=== PATIENT | male | born 1990 | race Two or more races ===

== ENCOUNTER 2025-05-29 09:51 | Inpatient (IN) | payer MEDICAID, OTHER ==
[~2025-05-29] VITALS: Ht 170.2 cm; Wt 85.3 kg
--- NOTE | 2025-05-29 10:49 | ED.PDOC ---
Musculoskeletal HPI Comments 35-year-old male presents to the ED for chief complaint of right elbow pain associated with swelling and redness that started 3 days ago. Patient reports that he got bit by a spider, has a puncture wound to the elbow region where the redness is localized. Patient denies any fever, chills, or drainage from wound site. He denies any medical history. Chief Complaint: Upper Extremity Time Seen by MD: 10:26 Reviewed Notes: Nurses Notes, Medications, Allergies Allergies: Coded Allergies: NO KNOWN ALLERGIES (Unverified , 05/29/25) Information Source: Patient Mode of Arrival: Ambulatory Location: Right Extremity Location: Arm, Elbow Severity: Moderate Able to Move Extremity: Yes Bear Weight: Fully Pain: Moderate Mechanism: None Circumstances: Other Associated signs and symptoms: Swelling, Elbow pain Past Medical History PAST MEDICAL HISTORY: Denies Surgical History: Denies all surgeries Social History Smoker: Cigarettes Alcohol: Denies ETOH Use Drugs: Marijuana Lives In: Home Constitutional: denies: chills, diaphoresis, fatigue, fever, malaise, sweats, weakness, others EENTM: denies: blurred vision, double vision, ear bleeding, ear discharge, ear drainage, ear pain, ear ringing, eye pain, eye redness, hearing loss, mouth pain, mouth swelling, nasal discharge, nose bleeding, nose congestion, nose pain, photophobia, tearing, throat pain, throat swelling, voice changes, others Respiratory: denies: cough, hemoptysis, orthopnea, SOB at rest, shortness of breath, SOB with excertion, stridor, wheezing, others Cardiovascular: denies: chest pain, dizzy spells, diaphoresis, Dyspnea on exertion, edema, irregular heart beat, left arm pain, lightheadedness, palpitations, PND, syncope, others Gastrointestinal: denies: abdomen distended, abdominal pain, blood streaked bowels, constipated, diarrhea, dysphagia, difficulty swallowing, hematemesis, melena, nausea, poor appetite, poor fluid intake, rectal bleeding, rectal pain, vomiting, others Genitourinary: denies: burning, dysuria, flank pain, frequency, hematuria, incontinence, penile discharge, penile sore, pain, testicle pain, testicle swelling, urgency, others Neurological: denies: dizziness, fainting, headache, left sided numbness, left sided weakness, numbness, paresthesia, pre-existing deficit, right sided numbness, right sided weakness, seizure, speech problems, tingling, tremors, weakness, others Musculoskeletal: denies: back pain, gout, joint pain, joint swelling, muscle pain, muscle stiffness, neck pain, others Integumetry: reports: others (right swelling and redness elbow and arm ); denies: bruises, change in color, change in hair/nails, dryness, laceration, lesions, lumps, rash, wounds Allergic/Immunocompromised: denies: Difficulty Healing, Frequent Infections, Hives, Itching, others Hematologic/Lymphatic: denies: anemia, blood clots, easy bleeding, easy bruising, swollen glands, others Endocrine: denies: excessive hunger, excessive sweating, excessive thirst, excessive urination, flushing, intolerance to cold, intolerance to heat, unexplained weight gain, unexplained weight loss, others Psychiatric: denies: anxiety, bipolar disorder, depression, hopeless, panic disorder, schizophrenia, sleepless, suicidal, others All Other Systems: Reviewed and Negative Physical Exam General Appearance: Moderate Distress HEENT: Normal ENT Inspection, Pharynx Normal, TMs Normal Neck: Full Range of Motion, Non-Tender, Normal, Normal Inspection Respiratory: Chest Non-Tender, Lungs Clear, No Accessory Muscle Use, No Respiratory Distress, Normal Breath Sounds Cardiovascular: No Edema, No JVD, No Murmur, No Gallop, Normal Peripheral Pulses, Regular Rate/Rhythm Breast Exam: Deferred Gastrointestinal: No Organomegaly, Non Tender, No Pulsatile Mass, Normal Bowel Sounds, Soft Genitalia: Deferred Pelvic: Deferred Rectal: Deferred Extremities: No calf tenderness, Normal capillary refill, Normal inspection, Normal range of motion, Non-tender, No pedal edema Musculoskeletal : Apperance: Normal Neurologic: Alert, stripping shovel oiler II-XII nml as Tested, No Motor Deficits, Normal Affect, Normal Mood, No Sensory Deficits Cerebellar Function: NOT DONE Reflexes: NOT DONE Skin: Wounds (Right elbow redness) Peripheral Pulses: 3+ Radial (R), 3+ Radial (L) Lymphatic: No Adenopathy Was a procedure done? Was a procedure done?: No Differential Diagnosis EXT Differential Diagnosis: Cellulitis, Deep Vein Thrombosis, Gout, Strain X-Ray, Labs, Meds, VS Vital Signs Date Time Temp Pulse Resp B/P (MAP) Pulse Ox O2 Delivery O2 Flow Rate FiO2 05/29/25 10:41 99.7 120 19 127/86 (100) 96 99.7 05/29/25 09:55 98.1 118 18 127/91 99 98.1 Patient alert. Complaining of right elbow swelling. Possible spider bite. Vitals stable. Saturation pristine on room air. He is tachycardic. Establish intravenous access. Was given fluids pain Was given Rocephin. Was given clindamycin. Continue monitoring. Time of 1ST Reevaluation: 10:49 Reevaluation 1ST: Unchanged Patient Education/Counseling: Diagnosis, Treatment, Prognosis Family Education/Counseling: No Family Present Departure 1 Departure Time of Disposition: 12:44 Impression: Primary Impression: Cellulitis Qualified Codes: L03.113 - Cellulitis of right upper limb Disposition: ADMITTED INPATIENT Admit to: Med Surg Condition: Guarded Critical Care Note Critical Care Time?: No Stability Stability form required: No I personally scribed for ELVIN JIMENEZ MD ([email or web address]) on 05/29/25 at 10:49. Electronically submitted by Katarina Reyez ([facility]). ELVIN JIMENEZ MD May 29, 2025 10:49
[2025-05-29 13:38] LABS: Hematocrit 51.8 % (41.0-53.0); Hemoglobin 17.5 g/dL (13.5-17.5); Mean Corpuscular Hemoglobin 30.1 pg (28.0-32.0); Mean Corpuscular Volume 88.8 fL (80.0-100.0); Nucleated Red Blood Cells % 0.1 %
[2025-05-29 13:48] LABS: Potassium 3.6 mmol/L (3.5-5.1)
[2025-05-29 13:49] LABS: Anion Gap 9 (5-15); Carbon Dioxide 25 mmol/L (20-31)
[2025-05-29 13:50] LABS: Calcium 9.6 mg/dL (8.7-10.4)
[2025-05-29 13:51] LABS: Chloride 97 mmol/L (98-107); Sodium 131 mmol/L (136-145)
[2025-05-29 13:54] LABS: BUN/Creatinine Ratio 8.7 (10.0-20.0)
[2025-05-29 13:55] LABS: Blood Urea Nitrogen 9 mg/dL (9-23); Glucose 109 mg/dL (74-106)
[2025-05-29] MEDS: SODIUM CHLORIDE 0.9% 1,000 ML IV ONE ×2 (14:06→20:10)
[2025-05-29] MEDS: CLINDAMYCIN 600MG IV 50 ML IV ONE ×2 (14:07→14:14)
--- NOTE | 2025-05-29 14:29 | DVHHPRES ---
History of Present Illness Resident Creating Document: SUZETTE FELTON History of Present Illness Alexander Moreland is a 35-year-old male patient who presents to the ED with chief complaint of right elbow swelling and redness after presumable spider bite which occurred three days ago. Associated he also presented fever the past 24 hours before his admission, prompting his visit to the ED. Denies any other associated symptom. Past medical history: Denies Surgical history: Left radial artery repair after trauma Family history noncontributory Social history: Lives in [place] with family (next of kin of partner). Current tobacco abuse (approximately one pack-year history of smoking) alcohol abuse (a 12 pack of beer every day for one year). Denies current marijuana and other drug abuse. Allergies: Denies Home medication: Denies Patient seen and examined at bedside. Currently has no new complaints. Patient will be admitted for further evaluation and management. Past Medical History Per HPI Past Surgical History Per HPI Family History Per HPI Past Social History Per HPI Review of Systems Review of Systems Per HPI Allergies: Coded Allergies: NO KNOWN ALLERGIES (Unverified , 05/29/25) Exam Vital Signs Vital Signs Date Time Temp Pulse Resp B/P (MAP) Pulse Ox O2 Delivery O2 Flow Rate FiO2 05/29/25 10:41 99.7 120 19 127/86 (100) 96 99.7 Exam Patient lying in bed, in no acute distress General: Lucid, afebrile, mucosae are moist Cardiovascular: Normal S1 and S2. No murmurs, gallops or rubs Respiratory: Normal ventilation mechanics. Clear lung sounds on auscultation Abdomen: Soft, nontender, no organomegaly, normal bowel sounds MSK/skin: Mobilizes 4 limbs. Skin is dry and warm. Warmth and erythema on right elbow associated with pustular lesion Neurological: Oriented in 3 spheres. No motor no sensitive deficits. Pupils are isocoric and reactive Labs/Xrays Labs Test 05/29/25 13:30 Range/Units White Blood Count 14.5 H 4.4-10.8 10^3/uL Red Blood Count 5.83 4.5-5.90 10^6/uL Hemoglobin 17.5 13.5-17.5 g/dL Hematocrit 51.8 41.0-53.0 % Mean Corpuscular Volume 88.8 80.0-100.0 fL Mean Corpuscular Hemoglobin 30.1 28.0-32.0 pg Mean Corpuscular Hemoglobin Concent 33.9 32.0-36.0 g/dL Red Cell Distribution Width 14.0 11.8-14.3 % Platelet Count 232 140-450 10^3/uL Mean Platelet Volume 6.9 6.9-10.8 fL Neutrophils (%) (Auto) 90.3 H 37.0-80.0 % Lymphocytes (%) (Auto) 4.4 L 10.0-50.0 % Monocytes (%) (Auto) 3.9 0.0-12.0 % Eosinophils (%) (Auto) 1.3 0.0-7.0 % Basophils (%) (Auto) 0.1 0.0-2.0 % Neutrophils # (Auto) 13.1 H 1.6-8.6 10 ^3/uL Lymphocytes # (Auto) 0.6 0.4-5.4 10 ^3/uL Monocytes # (Auto) 0.6 0-1.3 10 ^3/uL Eosinophils # (Auto) 0.2 0-0.8 10 ^3/uL Basophils # (Auto) 0 0-0.2 10 ^3/uL Nucleated Red Blood Cells 0.1 % Sodium Level 131 L 136-145 mmol/L Potassium Level 3.6 3.5-5.1 mmol/L Chloride Level 97 L 98-107 mmol/L Carbon Dioxide Level 25 20-31 mmol/L Anion Gap 9 5-15 Blood Urea Nitrogen 9 9-23 mg/dL Creatinine 1.04 0.700-1.30 mg/dL Glomerular Filtration Rate Calc 95 >90 mL/min BUN/Creatinine Ratio 8.7 L 10.0-20.0 Serum Glucose 109 H 74-106 mg/dL Calcium Level 9.6 8.7-10.4 mg/dL SEPSIS Sepsis Screen Date sepsis recognized/suspect: May 29, 2025 Time Sepsis recognized/suspect: 955 Recent Procedure: No On Antibiotic Therapy: No Respiratory Rate >20: No Heart Rate >90: No Temp<36 C (96.8 F) or >38.3 C: No SBP <90 or MAP <65 mmHG: No New Acute Mental Status Change: No Is the patient on CPAP, BIPAP,: No Physician Orders R Elbow 3 View Xray (05/29/25 14:18) Admit (05/29/25 14:18) Code Status (05/29/25 14:18) Acetaminophen Tablet (Tylenol Tablet) (05/29/25 14:30) Ondansetron Hcl (Zofran) (05/29/25 14:30) Complete Blood Count (05/30/25 04:00) Comprehensive Metabolic Panel (05/30/25 04:00) Cardiac Diet-2gna,Lofat,Lochol (05/29/25 Dinner) Morphine Sulfate Injection (05/29/25 14:30) Enoxaparin Sodium (Lovenox) (05/30/25 10:00) Oxygen By Nasal Cannula (05/29/25 14:18) Stat Ekg For Chest Pain (05/29/25 14:18) Notify Of Changes From Base (05/29/25 14:18) Psychiatric Aides Teacher For 24 Hours (05/29/25 14:18) Emergency Dysrhythmia Protocol (05/29/25 14:18) Rhythm Strips Once Every Shift (05/29/25 14:18) Vitamin D, 25-Hydroxy (05/29/25 14:18) Vitamin B12 (05/29/25 14:18) Urinalysis (05/29/25 14:18) Thyroid Stimulating Hormone (05/29/25 14:18) PTPTT (05/29/25 14:18) Phosphorus (05/29/25 14:18) Magnesium (05/29/25 14:18) Lipid Panel (05/29/25 14:18) Lactic Acid W/ Reflex Order (05/29/25 14:18) Hemoglobin A1c (05/29/25 14:18) Drug Screen (05/29/25 14:18) Blood Culture (05/29/25 14:18) Urine Bacterial Culture (05/29/25 14:18) Respiratory Culture W/ Gs (05/29/25 14:18) Mrsa Screen (05/29/25 14:18) Chest Xray 1 View (05/29/25 14:18) Covid19 Antigen Gail (05/29/25 ) Rapid Influenza A&B (05/29/25 14:18) * Wound Consult (05/29/25 ) Wound Culture W/ Gs (05/29/25 14:18) Hepatic Panel (05/29/25 14:27) Vancomycin (05/29/25 14:30) Zosyn Extended Infusion (05/29/25 22:00) NS (05/29/25 14:30) Vital Signs Date Time Temp Pulse Resp B/P (MAP) Pulse Ox O2 Delivery O2 Flow Rate FiO2 05/29/25 10:41 99.7 120 19 127/86 (100) 96 99.7 05/29/25 09:55 98.1 118 18 127/91 99 98.1 Laboratory Tests Test 05/29/25 13:30 White Blood Count 14.5 10^3/uL (4.4-10.8) H Medications Medications Dose Ordered Sig/Farhan Route Start Time Stop Time Status Last Admin Dose Admin Ceftriaxone Sodium 50 ml @ 100 mls/hr ONCE ONCE IV 05/29/25 12:45 05/29/25 13:14 DC 05/29/25 14:07 100 MLS/HR Clindamycin Phosphate 50 ml @ 50 mls/hr ONCE ONCE IV 05/29/25 12:45 05/29/25 13:44 DC 05/29/25 14:07 50 MLS/HR Sodium Chloride 1,000 ml @ 1,000 mls/hr Q1H ONCE IV 05/29/25 12:45 05/29/25 13:44 DC 05/29/25 14:06 1,000 MLS/HR Assessment/Plan Assessment/Plan ASSESSMENT Sepsis secondary to cellulitis right elbow Rule out abscess of right elbow Hyperlacticacidemia Transaminitis Mild hyponatremia Simple hyperglycemia Hypertriglyceridemia Polysubstance abuse (tobacco, alcohol and methamphetamine) Overweight PLAN Patient admitted to telemetry Required IV fluids. Currently under empiric IV antibiotic (vancomycin and Zosyn) Ordered x-ray which showed no abnormality Due to persistent tachycardia and fever, we will order right upper extremity CT with IV contrast to rule out abscess Consulted surgical scrub technologist for eventual incision and drainage Awaiting pancultures UDS is positive for methamphetamine (per patient he was not consuming). Counseled strongly on cessation of polysubstance abuse. Gave her advice on healthy lifestyle habits. Goals of care discussed with patient for over 18 minutes: Full code status Discussed plan with Dr. Diamond, patient and nurses: Currently on telemetry status. On empiric IV antibiotic, IV fluids, awaiting complementary workup to rule out right elbow abscess. Patient has poor prognosis Plan discussed with: Patient, Other (Nurses) My Orders Orders - SUZETTE FELTON RESIDENT Procedure Category Date Status Time R Elbow 3 View Xray XY 05/29/25 Logged 14:18 Admit ADMIT 05/29/25 Transmitted 14:18 Code Status CODE 05/29/25 Transmitted 14:18 Acetaminophen Tablet PHA 05/29/25 Logged (Tylenol Tablet) 14:30 Ondansetron Hcl PHA 05/29/25 Logged (Zofran) 14:30 Complete Blood Count LAB 05/30/25 Verified 04:00 Comprehensive LAB 05/30/25 Verified Metabolic Panel 04:00 Cardiac DIET 05/29/25 Transmitted Diet-2gna,Lofat,Lochol Dinner Morphine Sulfate PHA 05/29/25 Logged Injection 14:30 Enoxaparin Sodium PHA 05/30/25 Logged (Lovenox) 10:00 Oxygen By Nasal RT 05/29/25 Transmitted Cannula 14:18 Stat Ekg For Chest BANNER 05/29/25 In Process Pain 14:18 Notify Md Of Changes BANNER 05/29/25 In Process From Base 14:18 Psychiatric Aides Teacher For BANNER 05/29/25 In Process 24 Hours 14:18 Emergency Dysrhythmia BANNER 05/29/25 In Process Protocol 14:18 Rhythm Strips Once BANNER 05/29/25 In Process Every Shift 14:18 Vitamin D, 25-Hydroxy LAB 05/29/25 Logged 14:18 Vitamin B12 LAB 05/29/25 Logged 14:18 Urinalysis LAB 05/29/25 Logged 14:18 Thyroid Stimulating LAB 05/29/25 Logged Hormone 14:18 PTPTT LAB 05/29/25 Logged 14:18 Phosphorus LAB 05/29/25 Logged 14:18 Magnesium LAB 05/29/25 Logged 14:18 Lipid Panel LAB 05/29/25 Logged 14:18 Lactic Acid W/ Reflex LAB 05/29/25 Logged Order 14:18 Hemoglobin A1c LAB 05/29/25 Logged 14:18 Drug Screen LAB 05/29/25 Logged 14:18 Blood Culture SRINATH 05/29/25 Logged 14:18 Urine Bacterial SRINATH 05/29/25 Logged Culture 14:18 Respiratory Culture SRINATH 05/29/25 Logged W/ Gs 14:18 Mrsa Screen SRINATH 05/29/25 Logged 14:18 Chest Xray 1 View XY 05/29/25 Logged 14:18 Covid19 Antigen Gail LAB 05/29/25 Logged Rapid Influenza A&B LAB 05/29/25 Logged 14:18 * Wound Consult CONS 05/29/25 Transmitted Wound Culture W/ Gs SRINATH 05/29/25 Logged 14:18 Hepatic Panel LAB 05/29/25 Verified 14:27 Vancomycin PHA 05/29/25 Verified 14:30 Zosyn Extended PHA 05/29/25 Verified Infusion 22:00 NS PHA 05/29/25 Verified 14:30 Visit Coding STANDARD RES Billing Provider: BEVERLEY DIAMOND MD Date of Service if different f: May 29, 2025 Common Visit Codes: [id number] INP/OBS CARE (HIGH) Secondary Visit Codes: [id number] CARE PLAN 30 MINUTES SUZETTE FELTON RESIDENT May 29, 2025 14:29
[2025-05-29] MEDS ORDERED: VANCOMYCIN PER PHARMACY 0 MG IV SCH (14:30)
[2025-05-29 14:54] LABS: INR 1.12 (0.9-1.15); Partial Thromboplastin Time 31.5 SEC (24.5-34.5); Prothrombin Time 11.7 sec (9.3-11.8)
[2025-05-29] MEDS: VANCOMYCIN 1GM/250ML KIT 250 ML IV SCH (15:09)
[2025-05-29 15:10] LABS: Magnesium 2.2 mg/dL (1.6-2.6)
[2025-05-29 15:12] LABS: Cholesterol 134.0 mg/dL (< 200); HDL Cholesterol 59.0 mg/dL (40-59)
[2025-05-29 15:26] LABS: Albumin 4.8 g/dL (3.2-4.8); Alkaline Phosphatase 112.0 U/L (46-116); Total Protein 7.9 g/dL (5.7-8.2)
[2025-05-29 15:27] LABS: Bilirubin, Direct 0.3 mg/dL (<0.3); Bilirubin, Total 0.7 mg/dL (0.2-1.0)
[2025-05-29 15:28] LABS: Alanine Aminotransferase 50.0 U/L (7-40); Triglycerides 161.0 mg/dL (< 150)
--- NOTE | 2025-05-29 16:09 | DVH ---
CHEST RADIOGRAPH INDICATION: Sepsis TECHNIQUE: Single frontal view of the chest was obtained COMPARISON: None FINDINGS: Lines and Tubes: None Lungs: No focal consolidation. Pleura: No effusion. No pneumothorax. Cardiomediastinal contours: Unremarkable Bones: No acute osseous abnormality. IMPRESSION: No acute cardiopulmonary disease.
[2025-05-29 16:11] LABS: Lactic Acid w/Reflex 2.2 mmol/L (0.4-2.0)
--- NOTE | 2025-05-29 16:11 | DVH ---
CLINICAL INDICATION: Cellulitis TECHNIQUE: 3 radiographic views of the elbow were obtained. COMPARISON: None FINDINGS/IMPRESSION: There is no evidence of acute fracture or dislocation. The visualized joint space is well maintained. The alignment is anatomical. There is no radiopaque foreign body.
[2025-05-29] MEDS: VANCOMYCIN 1GM/250ML KIT 250 ML IV ONE ×2 (16:53→16:57)
[2025-05-29] MEDS: ONDANSETRON HCL 4 MG/2 ML VIAL IV PRN (17:07)
[2025-05-29] MEDS: MORPHINE SULFATE 4 MG/ML SYR/VIAL IV PRN (17:08)
[2025-05-29] MEDS: MORPHINE SULFATE 4 MG/ML SYR/VIAL ONE (17:08)
[2025-05-29] MEDS: ONDANSETRON HCL 4 MG/2 ML VIAL ONE (17:08)
[2025-05-29] MEDS: ACETAMINOPHEN 325 MG TAB PO ONE ×2 (17:23→19:06)
[2025-05-29 17:31] LABS: Urine Protein, UAD 1+ (Negative)
[2025-05-29 17:47] LABS: Amphetamine Screen, Urine Pos (NEGATIVE); Barbiturate Scree,Urine Neg (NEGATIVE); Benzodiazephine Screen, Urine Neg (NEGATIVE); Cannabinoid Screen, Urine Neg (NEGATIVE); Cocaine Screen, Urine Neg (NEGATIVE); Opiate Scree,Urine Neg (NEGATIVE); Phencyclidine Screen, Urine Neg (NEGATIVE)
[2025-05-29 17:57] LABS: COVID19 ANTIGEN SOFIA FIA NEGATIVE (NEGATIVE)
[2025-05-29 18:54] VITALS: PULSE 118; RESP 18; O2SAT 98
[2025-05-29] MEDS: SODIUM CHLORIDE 0.9% 1,000 ML IV SCH (19:08)
[2025-05-29 21:22] VITALS: BP 125/86; PULSE 123; RESP 20; TEMP 100.1; O2SAT 97
--- NOTE | 2025-05-29 22:56 | DVH ---
ULTRASOUND OF RIGHT UPPER EXTREMITY SOFT TISSUE REASON FOR EXAMINATION: Evaluate abscess on right elbow. Spider bite. COMPARISON: XY R ELBOW 3 VIEW XRAY on DOS: 05/29/25 TECHNIQUE: Using real-time freeze-frame technique with a high-frequency transducer, multiple longitudinal and transverse sections were obtained in the area of concern at the right elbow. Simultaneous color flow and spectral Doppler imaging was performed with appropriate. FINDINGS: There is severe edema of the subcutaneous soft tissues in the area of concern at the right elbow. There is an approximately 0.7 x 0.3 cm focal elevation of the skin in the area of concern. There is a 1.2 x 0.6 x 0.7 cm lobulated, anechoic fluid collection approximately 0.7 cm beneath the skin within the edematous subcutaneous tissue. IMPRESSION: Severe edema. Approximately 1.2 cm lobulated fluid collection within the subcutaneous tissue, possibly an early abscess.
[2025-05-29] MEDS: PIPERACILLIN-TAZOB 3.375GM 100 ML IV SCH (23:00)
[2025-05-29] MEDS: KETOROLAC TROMETH 30 MG/ML 1ML VIAL IV ONE (23:01)
[2025-05-30] VITALS (9 sets, daily range): BP systolic 106–126; BP diastolic 73–91; PULSE 100–118; RESP 16–18; TEMP 97.9–101.5; O2SAT 93–100
[2025-05-30] MEDS: ACETAMINOPHEN 325 MG TAB PO PRN (00:09)
[2025-05-30] MEDS: HYDROmorphone HCL 2 MG/ML VL/or syr IV PRN ×2 (05:07→21:58)
[2025-05-30 05:47] LABS: Hematocrit 44.3 % (41.0-53.0); Hemoglobin 15.0 g/dL (13.5-17.5); Mean Corpuscular Hemoglobin 30.0 pg (28.0-32.0); Mean Corpuscular Volume 88.8 fL (80.0-100.0); Nucleated Red Blood Cells % 0.0 %
[2025-05-30 05:55] LABS: Alkaline Phosphatase 106 U/L (46-116); Anion Gap 8 (5-15); BUN/Creatinine Ratio 9.2 (10.0-20.0); Carbon Dioxide 23 mmol/L (20-31); Chloride 103 mmol/L (98-107); Potassium 4.0 mmol/L (3.5-5.1); Total Protein 6.2 g/dL (5.7-8.2)
[2025-05-30 05:56] LABS: Albumin 3.7 g/dL (3.2-4.8); Bilirubin, Total 1.1 mg/dL (0.2-1.0)
[2025-05-30 06:05] LABS: Alanine Aminotransferase 51 U/L (7-40); Blood Urea Nitrogen 8 mg/dL (9-23); Calcium 8.2 mg/dL (8.7-10.4); Glucose 107 mg/dL (74-106); Sodium 134 mmol/L (136-145)
[2025-05-30] MEDS: ENOXAPARIN SOD 40 MG/0.4 ML SYRINGE SC SCH (09:42)
[2025-05-30] MEDS: VANCOMYCIN 750MG KIT 100 ML IV SCH ×2 (13:00→20:43)
--- NOTE | 2025-05-30 13:11 | DVHINCON2 ---
Consultation - Surgical Date Seen: May 30, 2025 Referring Physician Reason for Consultation Right elbow cellulitis and superficial abscess History of Present Illness History of Present Illness Mr. Moreland is a 35-year-old male who presented to the hospital with 3 days of right elbow pain and swelling. Patient has no idea what happened to the elbow he thinks is some sort of spider bite as he saw a little hole in the elbow and it was whitish when he 1st noticed it. States that the area has continued to swell up as the days passed and pain has increased. He states that it started draining pus out of the elbow at the site of the little hole yesterday. He has been febrile prior to admission. He does not know for sure if it was a insect bite or denies any trauma to the area. He also denies injecting anything to the area. Denies being recently sick or having sick contacts, chills, changes in urinary or stooling habits. Past Medical/Surgical History Past Medical/Surgical History PMH left forearm abscess due to trauma, left radial artery injury due to trauma PSH incision and drainage of left forearm abscess in left radial artery repair Family and Social History Family and Social History Family history noncontributory ETOH/drugs denies, although patient was meth positive on labs T Ob 1 pack per day for 1 year Allergies and medications Allergies: Coded Allergies: NO KNOWN ALLERGIES (Unverified , 05/29/25) Home Meds No Active Prescriptions or Reported Meds Review of systems Review of Systems: Deferred Examination Vital signs Vital Signs Date Time Temp Pulse Resp B/P (MAP) Pulse Ox O2 Delivery O2 Flow Rate FiO2 05/30/25 09:43 108 18 133/86 05/30/25 09:00 101.1 98 101.1 05/30/25 08:00 Room Air* 0 21 Medications Current Medications Medications (Trade) Dose Ordered Sig/Farhan Route PRN Reason Start Time Stop Time Status Last Admin Acetaminophen (Tylenol Tablet) 325 mg Q4HP PRN PO MILD PAIN (1-3 PAIN SCALE) 05/29/25 14:30 05/30/25 00:09 Ondansetron HCl (Zofran) 4 mg Q4HP PRN IV NAUSEA / VOMITING 05/29/25 14:30 05/29/25 17:07 Morphine Sulfate 2 mg Q4HPRN PRN IV SEVERE PAIN (7-10 PAIN SCALE) 05/29/25 14:45 05/29/25 22:46 DC 05/29/25 17:08 Enoxaparin Sodium (Lovenox) 40 mg DAILY SC 05/30/25 10:00 05/30/25 09:42 Vancomycin HCl 0 ml @ 0 mls/hr PER PHARMACY IV 05/29/25 14:30 Piperacillin Sod/ Tazobactam Sod 100 ml @ 25 mls/hr Q8HR IV 05/29/25 22:00 05/30/25 05:08 Sodium Chloride 1,000 ml @ 100 mls/hr Q10H IV 05/29/25 14:30 05/30/25 05:11 Vancomycin HCl 250 ml @ 250 mls/hr Q1H IV 05/29/25 14:45 05/29/25 16:44 DC 05/29/25 16:57 Hydromorphone HCl (Dilaudid Injection) 0.25 mg Q4HPRN PRN IV SEVERE PAIN (7-10 PAIN SCALE) 05/29/25 22:45 05/30/25 09:43 Vancomycin HCl 100 ml @ 100 mls/hr Q8H IV 05/30/25 13:00 Laboratory Labs Test 05/30/25 05:25 05/29/25 17:00 05/29/25 13:30 Range/Units White Blood Count 13.4 H 4.4-10.8 10^3/uL Red Blood Count 5.00 4.5-5.90 10^6/uL Hemoglobin 15.0 13.5-17.5 g/dL Hematocrit 44.3 # 41.0-53.0 % Mean Corpuscular Volume 88.8 80.0-100.0 fL Mean Corpuscular Hemoglobin 30.0 28.0-32.0 pg Mean Corpuscular Hemoglobin Concent 33.8 32.0-36.0 g/dL Red Cell Distribution Width 13.8 11.8-14.3 % Platelet Count 180 140-450 10^3/uL Mean Platelet Volume 6.9 6.9-10.8 fL Neutrophils (%) (Auto) 91.4 H 37.0-80.0 % Lymphocytes (%) (Auto) 4.2 L 10.0-50.0 % Monocytes (%) (Auto) 2.7 0.0-12.0 % Eosinophils (%) (Auto) 1.6 0.0-7.0 % Basophils (%) (Auto) 0.1 0.0-2.0 % Neutrophils # (Auto) 12.3 H 1.6-8.6 10 ^3/uL Lymphocytes # (Auto) 0.6 0.4-5.4 10 ^3/uL Monocytes # (Auto) 0.4 0-1.3 10 ^3/uL Eosinophils # (Auto) 0.2 0-0.8 10 ^3/uL Basophils # (Auto) 0 0-0.2 10 ^3/uL Nucleated Red Blood Cells 0.0 % Sodium Level 134 L 136-145 mmol/L Potassium Level 4.0 3.5-5.1 mmol/L Chloride Level 103 98-107 mmol/L Carbon Dioxide Level 23 20-31 mmol/L Anion Gap 8 5-15 Blood Urea Nitrogen 8 L 9-23 mg/dL Creatinine 0.87 0.700-1.30 mg/dL Glomerular Filtration Rate Calc 115 >90 mL/min BUN/Creatinine Ratio 9.2 L 10.0-20.0 Serum Glucose 107 H 74-106 mg/dL Lactic Acid Level 0.8 0.4-2.0 mmol/L Calcium Level 8.2 L 8.7-10.4 mg/dL Total Bilirubin 1.1 H 0.2-1.0 mg/dL Aspartate Amino Transferase (AST) 36 13-40 U/L Alanine Aminotransferase (ALT) 51 H 7-40 U/L Alkaline Phosphatase 106 46-116 U/L Total Protein 6.2 5.7-8.2 g/dL Albumin 3.7 3.2-4.8 g/dL Random Vancomycin Level 3.8 L 5-10 ug/mL Urine Color Yellow Yellow Urine Clarity Clear Clear Urine pH 5.5 5.0-9.0 Urine Specific [place] 1.035 1.001-1.035 Urine Protein 1+ H Negative Urine Ketones Trace Negative Urine Blood Negative Negative /uL Urine Nitrite Negative Negative Urine Bilirubin Negative Negative Urine Urobilinogen Normal Negative mg/dL Urine Leukocyte Esterase 1+ Negative /uL Urine RBC 5 0 - 3 /hpf Urine Microscopic WBC 16 H 0-3 /HPF Urine Squamous Epithelial Cells Few <5 /hpf Urine Bacteria None seen None Seen /hpf Urine Hyaline Casts Few 0 - 2 /lpf Urine Mucus Few None Seen Urine Glucose 1+ H Normal mg/dL Urine Opiates Screen Neg NEGATIVE Urine Fentanyl Screen Neg NEGATIVE Urine Barbiturates Screen Neg NEGATIVE Urine Phencyclidine Screen Neg NEGATIVE Urine Amphetamines Screen Pos NEGATIVE Urine Benzodiazepines Screen Neg NEGATIVE Urine Cocaine Screen Neg NEGATIVE Urine Cannabinoids Screen Neg NEGATIVE Influenza Type A Antigen Negative Negative Influenza Type B Antigen Negative Negative SARS-CoV-2 Antigen (Rapid) Negative NEGATIVE Prothrombin Time 11.7 9.3-11.8 sec Prothrombin Time INR 1.12 0.9-1.15 Activated Partial Thromboplast Time 31.5 24.5-34.5 SEC Hemoglobin A1c 5.4 <5.7 % A1C Phosphorus Level 2.9 2.4-5.1 mg/dL Magnesium Level 2.2 1.6-2.6 mg/dL Direct Bilirubin 0.3 <0.3 mg/dL Triglycerides Level 161 H < 150 mg/dL Cholesterol Level 134 < 200 mg/dL LDL Cholesterol 55 < 100 mg/dL HDL Cholesterol 59 40-59 mg/dL Thyroid Stimulating Hormone (TSH) 1.54 0.55-4.78 uIU/mL Microbiology Date/Time Source Procedure Growth Status 05/29/25 17:00 Elbow Gram Stain Pending Resulted 05/29/25 17:00 Elbow Wound Culture - Preliminary Resulted 05/29/25 17:00 Voided Urine Urine Culture - Preliminary No growth Resulted Examination: GENERAL:Normal (AAO x3), LUNGS:Normal (Nonlabored breathing with symmetric expansion), SKIN:Abnormal (Right elbow and upper forearm edema and erythema, tender, pinpoint hole inferior to the elbow with a active drainage, we will discrete area of fluctuance felt, no crepitus, no necrosis, positive radial pulse +2) Problem List/Assessment/Plan Problems: (1) Cellulitis Assessment and Plan Mr. Moreland is a 35-year-old male who presents with right elbow cellulitis and superficial abscess due to unknown reason. CT shows subcu fluid throughout the elbow and upper forearm. Ultrasound shows a superficial fluid collection of the right elbow/immediately below it. Patient will benefit from incision and drainage of the right elbow. Given that he ate breakfast and lunch today it will be done tomorrow morning. Procedure, risks, benefits, complications, and alternatives discussed with the patient. Patient agrees with plan. 1. On-call to OR tomorrow a.m. for right elbow incision and drainage 2. NPO at midnight 3. Continue vanc and Zosyn Plan discussed with Plan discussed with: Patient Visit Coding Surgery Date of Service if different f: May 30, 2025 Billing Provider: SAMUEL ANDERS MD Surgery Visit Codes: 84323 - INP CONSULT <110 MIN SAMUEL ANDERS MD May 30, 2025 13:11
--- NOTE | 2025-05-30 15:42 | DVHPN2 ---
Subjective Admitted for right arm cellulitis and abscess formation Changes from previous H/P or p: Changes Objective Vitals Vital Signs Date Time Temp Pulse Resp B/P (MAP) Pulse Ox O2 Delivery O2 Flow Rate FiO2 05/30/25 15:33 101.4 05/30/25 15:28 110 17 126/84 05/30/25 13:00 96 05/30/25 08:00 Room Air* 0 21 Intake/Output Intake and Output 05/30/25 07:00 Intake Total 3100 ml Balance 3100 ml Intake Oral 400 ml IV Total 2700 ml # Voids 3 General Appearance: Alert, Oriented X3, Cooperative, No acute distress Lungs: Clear to auscultation Cardiovascular: Regular rate, Normal S1, Normal S2 Abdomen: Normal bowel sounds, Soft Extremities: Other (Right upper extremity severe edema of the elbow and forearm) Medications Current Medications Medications Dose Ordered Sig/Farhan Route Start Time Stop Time Status Last Admin Dose Admin Acetaminophen 325 mg Q4HP PRN PO 05/29/25 14:30 05/30/25 15:33 325 MG Ondansetron HCl 4 mg Q4HP PRN IV 05/29/25 14:30 05/29/25 17:07 4 MG Enoxaparin Sodium 40 mg DAILY SC 05/30/25 10:00 05/30/25 09:42 40 MG Vancomycin HCl 0 ml @ 0 mls/hr PER PHARMACY IV 05/29/25 14:30 Piperacillin Sod/ Tazobactam Sod 100 ml @ 25 mls/hr Q8HR IV 05/29/25 22:00 05/30/25 05:08 25 MLS/HR Sodium Chloride 1,000 ml @ 100 mls/hr Q10H IV 05/29/25 14:30 05/30/25 05:11 100 MLS/HR Hydromorphone HCl 0.25 mg Q4HPRN PRN IV 05/29/25 22:45 05/30/25 15:28 0.25 MG Vancomycin HCl 100 ml @ 100 mls/hr Q8H IV 05/30/25 13:00 05/30/25 13:00 100 MLS/HR Laboratory Results Laboratory Tests 05/30/25 05:25 Chemistry Test 05/30/25 05:25 Albumin 3.7 g/dL (3.2-4.8) Calcium Level 8.2 mg/dL (8.7-10.4) L Total Protein 6.2 g/dL (5.7-8.2) LFT Test 05/30/25 05:25 Alanine Aminotransferase (ALT) 51 U/L (7-40) H Alkaline Phosphatase 106 U/L (46-116) Aspartate Amino Transferase (AST) 36 U/L (13-40) Total Bilirubin 1.1 mg/dL (0.2-1.0) H Urinalysis Test 05/29/25 17:00 Urine Color Yellow (Yellow) Urine Clarity Clear (Clear) Urine pH 5.5 (5.0-9.0) Urine Specific [place] 1.035 (1.001-1.035) Urine Protein 1+ (Negative) H Urine Ketones Trace (Negative) Urine Blood Negative /uL (Negative) Urine Nitrite Negative (Negative) Urine Bilirubin Negative (Negative) Urine Urobilinogen Normal mg/dL (Negative) Urine Leukocyte Esterase 1+ /uL (Negative) Urine RBC 5 /hpf (0 - 3) Urine Microscopic WBC 16 /HPF (0-3) H Urine Squamous Epithelial Cells Few /hpf (<5) Urine Bacteria None seen /hpf (None Seen) Urine Hyaline Casts Few /lpf (0 - 2) Urine Mucus Few (None Seen) Urine Glucose 1+ mg/dL (Normal) H Microbiology Microbiology Date/Time Source Procedure Growth Status 05/29/25 17:00 Elbow Gram Stain Pending Resulted 05/29/25 17:00 Elbow Wound Culture - Preliminary Resulted 05/29/25 17:00 Voided Urine Urine Culture - Preliminary No growth Resulted 05/29/25 15:19 Blood Blood Culture - Preliminary NO GROWTH AFTER 24 HOURS OF INCUBATION. Resulted Assessment/Plan Assessment/Plan Right upper extremity cellulitis with abscess Sepsis due to the above Hyponatremia Polysubstance abuse Obesity Plan Continue IV antibiotics Zosyn and vancomycin Surgical consult The patient will need incision and drainage, scheduled for tomorrow Lovenox subcutaneously Zofran as needed Pain management as needed Monitor closely Full code Advance directives discussed for 18 minutes Plan discussed with: Patient Date of Service: May 30, 2025 Billing Provider: JESÚS ECHEVARRIA MD Common Visit Codes: [id number] INP/OBS CARE(HIGH) Secondary Visit Codes: [id number] CARE PLAN 30 MINUTES JESÚS ECHEVARRIA MD May 30, 2025 15:42
--- NOTE | 2025-05-30 16:17 | DVH ---
Exam: CT right upper extremity Clinical history: Abscess of right elbow, spider bite TECHNIQUE: CT of the right upper extremity was performed with intravenous contrast, 100 mL Omnipaque 300 injected intravenously . Coronal and sagittal imaging reformatted from source axial data.This exam was performed according to our departmental dose optimization program. Up-to-date CT equipment and radiation dose reduction techniques are utilized as appropriate. CTDI: 25.7; DLP: 2015.38 mGy Comparison: Right elbow x-ray from 05/29/2025 and right upper extremity DVT study from 05/29/2025 FINDINGS: Normal mineralization and alignment. The joint spaces are preserved. There is no acute fracture. No focal osteopenia or cortical destruction to suggest osteomyelitis. Visualized portions of the right lung are clear. There is mild right axillary lymphadenopathy. There is mild subcutaneous stranding in the lateral right chest wall. Moderate subcutaneous edema in the right upper extremity starting at the mid aspect of the upper arm and becomes more moderate towards the elbow and most of the forearm, and becoming more mild in the distal forearm. The Muscle bundles about the Right upper extremity are intact. No soft tissue gas. No well-formed loculated fluid collection. The right axillary, brachial, and forearm arteries are widely patent. There is hyperemia in the more superficial vasculature of the right forearm. There is a tiny hypodensity in the visualized liver not optimally evaluated on this examination (series 2, image 201). IMPRESSION: 1. Subcutaneous edema in the right upper extremity starting at the mid aspect of the upper arm, and becoming more moderate towards the elbow and most of the forearm, and mild distally in the right forearm. This Is likely cellulitis. No well-formed fluid collection to suggest abscess or soft tissue gas is seen. 2. No evidence of osteomyelitis or acute fracture. 3. Mild right axillary lymphadenopathy, likely reactive.
[2025-05-30] MEDS ORDERED: ACETAMINOPHEN 325 MG TAB PO PRN (21:45)
[2025-05-30] MEDS: ONDANSETRON HCL 4 MG/2 ML VIAL IV PRN (21:58)
[2025-05-30] MEDS: PIPERACILLIN-TAZOB 3.375GM 100 ML IV SCH (21:59)
[2025-05-30] MEDS: SODIUM CHLORIDE 0.9% 1,000 ML IV SCH (22:04)
[2025-05-31 01:11] VITALS: BP 121/82; PULSE 104; RESP 19; TEMP 98.7; O2SAT 96
[2025-05-31 04:37] VITALS: BP 128/85; PULSE 92; RESP 17; TEMP 98.4; O2SAT 97
[2025-05-31 06:50] LABS: Hematocrit 44.1 % (41.0-53.0); Hemoglobin 14.9 g/dL (13.5-17.5); Mean Corpuscular Hemoglobin 29.6 pg (28.0-32.0); Mean Corpuscular Volume 87.8 fL (80.0-100.0); Nucleated Red Blood Cells % 0.0 %
[2025-05-31] MEDS ORDERED: MEPERIDINE HCL (25 MG/ML) 1ML VIAL ONE ×2 (07:01→09:16)
[2025-05-31] MEDS ORDERED: PROPOFOL 10 MG/ML 20 ML IV ONE (07:01)
[2025-05-31] MEDS ORDERED: fentaNYL CITRATE 100 MCG/2 ML VL ONE (07:01)
[2025-05-31] MEDS: LIDOCAINE W/ EPINEPHRINE 2% INJ 20ML VIAL ONE (07:13)
[2025-05-31] MEDS: LIDOCAINE 1% HCL (LOCAL ANESTH.) INJ 20ML MDV ONE (07:13)
[2025-05-31 07:15] LABS: Anion Gap 9 (5-15); BUN/Creatinine Ratio 7.3 (10.0-20.0); Carbon Dioxide 24 mmol/L (20-31); Chloride 100 mmol/L (98-107); Glucose 95 mg/dL (74-106); Magnesium 1.8 mg/dL (1.6-2.6); Potassium 3.7 mmol/L (3.5-5.1); Total Protein 6.4 g/dL (5.7-8.2)
[2025-05-31 07:16] LABS: Albumin 3.8 g/dL (3.2-4.8)
[2025-05-31 07:20] LABS: Alanine Aminotransferase 67 U/L (7-40); Alkaline Phosphatase 130 U/L (46-116); Bilirubin, Total 1.2 mg/dL (0.2-1.0); Blood Urea Nitrogen 7 mg/dL (9-23); Calcium 8.4 mg/dL (8.7-10.4); Sodium 133 mmol/L (136-145)
[2025-05-31 08:00] VITALS: PULSE 105; PULSE 85; RESP 18; O2SAT 97
[2025-05-31] MEDS ORDERED: ONDANSETRON HCL 4 MG/2 ML VIAL ONE (08:46)
[2025-05-31] MEDS: BUPIVACAINE HCL 0.25% P/F 10 ML VIAL ONE (08:53)
[2025-05-31] MEDS: LIDOCAINE W/ EPINEPHRINE 1% 20ML VIAL ONE (08:53)
[2025-05-31 09:15] VITALS: PULSE 101; RESP 10; O2SAT 95
--- NOTE | 2025-05-31 09:25 | DVHOP2 ---
Operative Report - 2 Report Details Date: 05/31/25 Preop Diagnosis: Right elbow abscess Postop Diagnosis: Same Surgeon: Horacio Hickman MD Anesthesiologist: Dr. Ricketts Anesthesia: General Consent: The patient was informed of the risks and benefits of the procedure. These include but are not limited to complications of anesthesia, postoperative infection, incomplete relief of symptoms, recurrence of symptoms, damage to blood vessels, nerves and tendons, deep venous thrombosis, pulmonary embolism and possible need for repeat surgery in the future. Complications: None Estimated Blood Loss: 10 mL Findings: Fluctuant area posterior to the arm and inferior to the elbow. Abscess pocket extended medially, 5 cm. Wound wound measures 5 x 1.5 x 1 cm and tracks medially 5 cm Indications for Surgery: Right elbow abscess Name of Procedure Performed Right elbow incision and drainage Procedure Details Procedure Details: Upon arriving to the operating room the patient was transferred to the operating table and placed in the supine position with left arm extended and right arm across the chest. General endotracheal anesthesia was induced. Time-out was observed. Patient was prepped and draped in the standard sterile surgical fashion with chlorhexidine. I then proceeded to identify the most fluctuant area wishes in the dorsal arm inferior to the olecranon, where patient had a pus filled blister, and it was fluctuant. I then proceeded to inject local anesthetic, a combination of 1% lidocaine with the epinephrine and 0.25% Marcaine. I then proceeded to incise over the blistered area, and down to olecranon and muscle. Pus immediately started emanating from the wound, proximally 5-10 mL. Cultures were taken and sent for micro biology. I then broke loculations with my digit, wound tract medially approximately 5 cm. I the n proceeded to express fluid and pus from the arm with pressure, until no more pus came out. Wound was then copiously irrigated. Cautery was used to obtain hemostasis. Wound measured 5 cm x 1.5 by 1 cm and it tracked 5 cm medially, wound went down to the olecranon and forearm muscle. Wound was then pack with iodoform 1 in incise. Wound was dressed with Telfa, 4 x 4 gauze, ABD pad, wrapped with Kerlix and Jesse wrap. Patient tolerated the procedure well and was transferred to PACU in stable condition. Specimen: Pus culture for microbiology Condition Stable Disposition Still a Patient HORACIO ANDERS MD May 31, 2025 09:25
[2025-05-31] MEDS ORDERED: ACETAMINOPHEN IV 1000 MG/100ML (10MG/ML) IV PRN (09:30)
[2025-05-31] MEDS ORDERED: ONDANSETRON HCL 4 MG/2 ML VIAL IV PRN (09:30)
[2025-05-31] MEDS ORDERED: MEPERIDINE HCL (25 MG/ML) 1ML VIAL IV PRN (09:30)
[2025-05-31] MEDS ORDERED: HYDROmorphone HCL 2 MG/ML VL/or syr IV PRN (09:30)
[2025-05-31] MEDS: ENOXAPARIN SOD 40 MG/0.4 ML SYRINGE SC SCH (10:28)
--- NOTE | 2025-05-31 10:40 | DVHPN2 ---
Subjective Scheduled for surgery today Changes from previous H/P or p: Changes Objective Vitals Vital Signs Date Time Temp Pulse Resp B/P (MAP) Pulse Ox O2 Delivery O2 Flow Rate FiO2 05/31/25 06:20 92 17 128/85 05/31/25 04:37 98.4 97 98.4 05/30/25 20:00 Room Air* 0 21 Intake/Output Intake and Output 05/31/25 07:00 Intake Total 800 ml Balance 800 ml Intake Oral 500 ml IV Total 300 ml # Voids 7 General Appearance: Alert, Oriented X3, Cooperative, No acute distress Lungs: Clear to auscultation Cardiovascular: Regular rate, Normal S1, Normal S2 Abdomen: Normal bowel sounds, Soft Extremities: Other (Right upper extremity severe edema of the elbow and forearm) Medications Current Medications Medications Dose Ordered Sig/Farhan Route Start Time Stop Time Status Last Admin Dose Admin Vancomycin HCl 0 ml @ 0 mls/hr PER PHARMACY IV 05/29/25 14:30 Piperacillin Sod/ Tazobactam Sod 100 ml @ 25 mls/hr Q6H IV 05/30/25 22:00 05/31/25 10:27 25 MLS/HR Vancomycin HCl 100 ml @ 100 mls/hr Q8HR@0500,1300,2100 IV 05/30/25 21:00 05/31/25 05:16 100 MLS/HR Hydromorphone HCl 0.25 mg Q4HPRN PRN IV 05/30/25 21:45 05/31/25 06:20 0.25 MG Acetaminophen 325 mg Q4HP PRN PO 05/30/25 21:45 Ondansetron HCl 4 mg Q4HP PRN IV 05/30/25 21:45 05/31/25 06:19 4 MG Enoxaparin Sodium 40 mg DAILY SC 05/31/25 10:00 05/31/25 10:28 40 MG Sodium Chloride 1,000 ml @ 100 mls/hr Q10H IV 05/30/25 22:00 05/31/25 10:27 100 MLS/HR Laboratory Results Laboratory Tests 05/31/25 05:54 Chemistry Test 05/31/25 05:54 Albumin 3.8 g/dL (3.2-4.8) Calcium Level 8.4 mg/dL (8.7-10.4) L Magnesium Level 1.8 mg/dL (1.6-2.6) Total Protein 6.4 g/dL (5.7-8.2) LFT Test 05/31/25 05:54 Alanine Aminotransferase (ALT) 67 U/L (7-40) H Alkaline Phosphatase 130 U/L (46-116) H Aspartate Amino Transferase (AST) 33 U/L (13-40) Total Bilirubin 1.2 mg/dL (0.2-1.0) H Urinalysis Test 05/29/25 17:00 Urine Color Yellow (Yellow) Urine Clarity Clear (Clear) Urine pH 5.5 (5.0-9.0) Urine Specific [place] 1.035 (1.001-1.035) Urine Protein 1+ (Negative) H Urine Ketones Trace (Negative) Urine Blood Negative /uL (Negative) Urine Nitrite Negative (Negative) Urine Bilirubin Negative (Negative) Urine Urobilinogen Normal mg/dL (Negative) Urine Leukocyte Esterase 1+ /uL (Negative) Urine RBC 5 /hpf (0 - 3) Urine Microscopic WBC 16 /HPF (0-3) H Urine Squamous Epithelial Cells Few /hpf (<5) Urine Bacteria None seen /hpf (None Seen) Urine Hyaline Casts Few /lpf (0 - 2) Urine Mucus Few (None Seen) Urine Glucose 1+ mg/dL (Normal) H Microbiology Microbiology Date/Time Source Procedure Growth Status 05/29/25 17:00 Elbow Gram Stain Pending Resulted 05/29/25 17:00 Elbow Wound Culture - Preliminary Resulted 05/29/25 17:00 Voided Urine Urine Culture - Preliminary No growth Resulted 05/29/25 15:19 Blood Blood Culture - Preliminary NO GROWTH AFTER 24 HOURS OF INCUBATION. Resulted Assessment/Plan Assessment/Plan Right upper extremity cellulitis with abscess Sepsis due to the above Hyponatremia Polysubstance abuse Obesity Plan Continue IV antibiotics Zosyn and vancomycin Surgical consult The patient will need incision and drainage, scheduled for tomorrow Lovenox subcutaneously Zofran as needed Pain management as needed Monitor closely Full code Advance directives discussed for 18 minutes 05/31/2025: Continue IV antibiotics Surgical debridement by Dr. Tyler today Monitor closely Follow the culture and sensitivity report Wound care Plan discussed with: Patient Date of Service: May 31, 2025 Billing Provider: JESÚS ECHEVARRIA MD Common Visit Codes: [id number] INP/OBS CARE(HIGH) JESÚS ECHEVARRIA MD May 31, 2025 10:40
[2025-05-31] MEDS: VANCOMYCIN 1.5GM/250ML 250 ML IV SCH (15:30)
[2025-05-31] MEDS: HYDROmorphone HCL 2 MG/ML VL/or syr IV PRN (17:05)
[2025-05-31] MEDS: PIPERACILLIN-TAZOB 3.375GM 100 ML IV SCH (19:46)
[2025-05-31 20:00] VITALS: PULSE 102; RESP 20; O2SAT 98
[2025-05-31 21:00] VITALS: BP 123/83; PULSE 97; RESP 20; TEMP 97.6; O2SAT 98
[2025-06-01 01:00] VITALS: BP 118/84; PULSE 93; RESP 19; TEMP 98.4; O2SAT 98
[2025-06-01 05:00] VITALS: BP 129/83; PULSE 90; RESP 19; TEMP 98.8; O2SAT 94
[2025-06-01 07:26] LABS: Hematocrit 42.4 % (41.0-53.0); Hemoglobin 14.2 g/dL (13.5-17.5); Mean Corpuscular Hemoglobin 29.8 pg (28.0-32.0); Mean Corpuscular Volume 88.8 fL (80.0-100.0); Nucleated Red Blood Cells % 0.0 %
[2025-06-01 07:46] LABS: Anion Gap 10 (5-15); BUN/Creatinine Ratio 7.6 (10.0-20.0); Carbon Dioxide 25 mmol/L (20-31); Chloride 101 mmol/L (98-107); Glucose 89 mg/dL (74-106); Magnesium 2.1 mg/dL (1.6-2.6); Potassium 4.0 mmol/L (3.5-5.1); Total Protein 6.5 g/dL (5.7-8.2)
[2025-06-01 07:48] LABS: Alanine Aminotransferase 65 U/L (7-40); Albumin 3.8 g/dL (3.2-4.8); Alkaline Phosphatase 156 U/L (46-116); Bilirubin, Total 0.5 mg/dL (0.2-1.0); Blood Urea Nitrogen 7 mg/dL (9-23); Calcium 8.6 mg/dL (8.7-10.4); Sodium 136 mmol/L (136-145)
[2025-06-01 08:00] VITALS: PULSE 104; RESP 20; O2SAT 98
[2025-06-01 09:00] VITALS: BP 122/93; PULSE 73; RESP 16; TEMP 97.7; O2SAT 97
[2025-06-01 09:49] VITALS: BP 122/93; PULSE 73; RESP 16
--- NOTE | 2025-06-01 11:52 | DVHPN2 ---
Progress Note - Surgical Date Seen: Jun 01, 2025 Post op day Post op day: 1 Subjective Patient reports: Other (Left AMA before getting seen by me) Review of Systems: Not Done Objective Vital signs Vital Sign Date Time Temp Pulse Resp B/P (MAP) Pulse Ox O2 Delivery O2 Flow Rate FiO2 06/01/25 09:49 73 16 122/93 06/01/25 09:00 97.7 97 97.7 06/01/25 08:00 Room Air* 0 21 Total Intake and Output 05/31/25 05/31/25 06/01/25 15:00 23:00 07:00 Intake Total 200 ml 1050 ml Balance 200 ml 1050 ml Laboratory Laboratory Tests 06/01/25 04:55 Test 06/01/25 04:55 Range/Units Serum Glucose 89 74-106 mg/dL Microbiology Date/Time Source Procedure Growth Status 05/31/25 08:55 Other Right Gram Stain - Final Resulted 05/31/25 08:55 Other Right Anaerobic Culture Pending Resulted 05/31/25 08:55 Other Right Aerobic Culture - Preliminary Resulted 05/29/25 17:00 Voided Urine Urine Culture - Preliminary Resulted 05/29/25 15:19 Blood Blood Culture - Preliminary NO GROWTH AFTER 48 HOURS OF INCUBATION. Resulted Examination: Any Other System: (Left AMA before getting evaluated) Problem List/Assessment/Plan Assessment and Plan Mr. Hickman is a 35-year-old male who presented with right elbow abscess and cellulitis, currently postop day 1 from right elbow incision and drainage. Patient left AMA before being evaluated by me. Plan discussed with Plan discussed with: Other (Left AMA) Visit Coding Surgery Date of Service if different f: Jun 01, 2025 Billing Provider: SAMUEL ANDERS MD Surgery Visit Codes: NOT BILLABLE SAMUEL ANDERS MD Jun 01, 2025 11:52
--- NOTE | 2025-06-01 13:45 | DVHDS2 ---
Discharge Summary Date of Admission May 29, 2025 at 14:18 Date of Discharge: Jun 01, 2025 Labs/Diagnostic Data: Laboratory Results Test 06/01/25 04:55 05/31/25 13:30 05/30/25 05:25 05/29/25 17:00 White Blood Count 12.9 10^3/uL (4.4-10.8) Red Blood Count 4.78 10^6/uL (4.5-5.90) Hemoglobin 14.2 g/dL (13.5-17.5) Hematocrit 42.4 % (41.0-53.0) Mean Corpuscular Volume 88.8 fL (80.0-100.0) Mean Corpuscular Hemoglobin 29.8 pg (28.0-32.0) Mean Corpuscular Hemoglobin Concent 33.6 g/dL (32.0-36.0) Red Cell Distribution Width 13.6 % (11.8-14.3) Platelet Count 250 10^3/uL (140-450) Mean Platelet Volume 7.5 fL (6.9-10.8) Neutrophils (%) (Auto) 84.6 % (37.0-80.0) Lymphocytes (%) (Auto) 8.5 % (10.0-50.0) Monocytes (%) (Auto) 4.4 % (0.0-12.0) Eosinophils (%) (Auto) 2.4 % (0.0-7.0) Basophils (%) (Auto) 0.1 % (0.0-2.0) Neutrophils # (Auto) 10.9 10 ^3/uL (1.6-8.6) Lymphocytes # (Auto) 1.1 10 ^3/uL (0.4-5.4) Monocytes # (Auto) 0.6 10 ^3/uL (0-1.3) Eosinophils # (Auto) 0.3 10 ^3/uL (0-0.8) Basophils # (Auto) 0 10 ^3/uL (0-0.2) Nucleated Red Blood Cells 0.0 % Sodium Level 136 mmol/L (136-145) Potassium Level 4.0 mmol/L (3.5-5.1) Chloride Level 101 mmol/L (98-107) Carbon Dioxide Level 25 mmol/L (20-31) Anion Gap 10 (5-15) Blood Urea Nitrogen 7 mg/dL (9-23) Creatinine 0.92 mg/dL (0.700-1.30) Glomerular Filtration Rate Calc 111 mL/min (>90) BUN/Creatinine Ratio 7.6 (10.0-20.0) Serum Glucose 89 mg/dL (74-106) Calcium Level 8.6 mg/dL (8.7-10.4) Magnesium Level 2.1 mg/dL (1.6-2.6) Total Bilirubin 0.5 mg/dL (0.2-1.0) Aspartate Amino Transferase (AST) 34 U/L (13-40) Alanine Aminotransferase (ALT) 65 U/L (7-40) Alkaline Phosphatase 156 U/L (46-116) Total Protein 6.5 g/dL (5.7-8.2) Albumin 3.8 g/dL (3.2-4.8) Vancomycin Level Trough 4.9 ug/mL (5-10) Lactic Acid Level 0.8 mmol/L (0.4-2.0) Random Vancomycin Level 3.8 ug/mL (5-10) Urine Color Yellow (Yellow) Urine Clarity Clear (Clear) Urine pH 5.5 (5.0-9.0) Urine Specific [place] 1.035 (1.001-1.035) Urine Protein 1+ (Negative) Urine Ketones Trace (Negative) Urine Blood Negative /uL (Negative) Urine Nitrite Negative (Negative) Urine Bilirubin Negative (Negative) Urine Urobilinogen Normal mg/dL (Negative) Urine Leukocyte Esterase 1+ /uL (Negative) Urine RBC 5 /hpf (0 - 3) Urine Microscopic WBC 16 /HPF (0-3) Urine Squamous Epithelial Cells Few /hpf (<5) Urine Bacteria None seen /hpf (None Seen) Urine Hyaline Casts Few /lpf (0 - 2) Urine Mucus Few (None Seen) Urine Glucose 1+ mg/dL (Normal) Urine Opiates Screen Neg (NEGATIVE) Urine Fentanyl Screen Neg (NEGATIVE) Urine Barbiturates Screen Neg (NEGATIVE) Urine Phencyclidine Screen Neg (NEGATIVE) Urine Amphetamines Screen Pos (NEGATIVE) Urine Benzodiazepines Screen Neg (NEGATIVE) Urine Cocaine Screen Neg (NEGATIVE) Urine Cannabinoids Screen Neg (NEGATIVE) Influenza Type A Antigen Negative (Negative) Influenza Type B Antigen Negative (Negative) SARS-CoV-2 Antigen (Rapid) Negative (NEGATIVE) Test 12/27/25 13:30 Prothrombin Time 11.7 sec (9.3-11.8) Prothrombin Time INR 1.12 (0.9-1.15) Activated Partial Thromboplast Time 31.5 SEC (24.5-34.5) Hemoglobin A1c 5.4 % A1C (<5.7) Phosphorus Level 2.9 mg/dL (2.4-5.1) Direct Bilirubin 0.3 mg/dL (<0.3) Triglycerides Level 161 mg/dL (< 150) Cholesterol Level 134 mg/dL (< 200) LDL Cholesterol 55 mg/dL (< 100) HDL Cholesterol 59 mg/dL (40-59) Vitamin B12 Level 323 pg/mL (211-911) Vitamin D 25-Hydroxy 11.0 ng/mL (30.0-100) Thyroid Stimulating Hormone (TSH) 1.54 uIU/mL (0.55-4.78) Other Laboratory Tests 06/01/25 04:55 Brief Hx & Hospital Course: Final diagnoses: Right upper extremity cellulitis with abscess Sepsis due to the above Hyponatremia Polysubstance abuse Obesity Status post incision and drainage of the abscess of the right arm 35-year-old male who was admitted for cellulitis of the right arm with abscess formation and needed surgery He had incision and drainage done yesterday morning We came to see him this morning in room but he was gone and he left the hospital and never came back Condition at Discharge: Stable Final Diagnosis/Problems List Right arm cellulitis and abscess status post incision and drainage Discharge Disposition: AMA SNF Discharge Will this Physician continue t: No Discharge Instruct/Medications No Active Prescriptions or Reported Meds Discharge Statement: "Patient was advised to return to the ER or call 911 if any headaches, dizziness, shortness of breath, chest pain, abdominal pain, bleeding, fevers, or worsening of medical condition. Patient was counseled about treatment plan, medications, possible side effects, patientverbalized understanding. All questions were answered to the best of my ability. This discharge took greater then 30 minutes in planning, reviewing documentation, counseling the patient, and discussing with other team members." ASSESSMENT ASSESSMENT Assessment Same Date of Service: Jun 01, 2025 Billing Provider: JESÚS ECHEVARRIA MD Common Visit Codes: NOT BILLABLE JESÚS ECHEVARRIA MD Jun 01, 2025 13:45
== END 2025-06-01 10:39 | disposition left against medical advice (07) | DRG 710 ==
LOC: ER 09:51 → OVERFLOW 14:18 → TELE-WESTW 21:22
PROVIDERS: ADMIT Internal Medicine Geriatric Medicine; ATTEND Internal Medicine Geriatric Medicine
PROC: 0R9L0ZZ Drainage of Right Elbow Joint, Open Approach (ICD-10-PCS; principal; 2025-05-31 08:36)
DX: A41.9 Sepsis, unspecified organism (principal); E87.1 Hypo-osmolality and hyponatremia; L03.113 Cellulitis of right upper limb; L02.413 Cutaneous abscess of right upper limb; F15.10 Other stimulant abuse, uncomplicated; E66.9 Obesity, unspecified; R74.01 Elevation of levels of liver transaminase levels; Z20.822 Contact with and (suspected) exposure to COVID-19; E78.1 Pure hyperglyceridemia; F17.210 Nicotine dependence, cigarettes, uncomplicated; Z68.29 Body mass index [BMI] 29.0-29.9, adult
CPT/HCPCS: 36415; 71045; 73080; 73201; 76881; 80048; 80053; 80061; 80076; 80202; 80307; 81001; 82306; 82607; 83036; 83605; 83735; 84100; 84443; 85025; 85610; 85730; 86850; 86900; 86901; 87040; 87070; 87075; 87081; 87086; 87205; 87426; 87804; 96365; 96368; G0378; J0131; J1885; J2003; J2405; J2543; J2704; J3490